=== PATIENT | female | born 1975 | race Caucasian/White ===

== ENCOUNTER 2023-07-15 08:16 | Inpatient (IN) | payer OTHER ==
[~2023-07-15] VITALS: Ht 165.1 cm; Wt 69.9 kg
[~2023-07-15 08:16] MED LIST: KEFLEX500 MG PO; Mylicon 125MG PO; OXYC1TAB9 PO; PRENATE ADVANCE PO; SENNA S TABLET1 EACH PO
[2023-07-20] MEDS ORDERED: NORETHINDRONE AC5 MG (09:28)
[2023-07-23] MEDS ORDERED: ACETAMINOPHEN-1 EAC2 PO (11:40)
[2023-07-23] MEDS ORDERED: SURFAK240 M1 PO (11:40)
[2023-07-23] MEDS ORDERED: FEXMID7.5 MG PO (11:40)
== END 2023-07-23 12:36 | disposition home or self-care (01) | DRG 743 ==
LOC: O/R 07-20 05:38 → SURH 07-20 07:00 → OB/GYN 07-20 13:44
PROVIDERS: Urology; ADMIT Obstetrics & Gynecology; ATTEND Obstetrics & Gynecology
PROC: 0T788DZ Dilation of Bilateral Ureters with Intraluminal Device, Via Natural or Artificial Opening Endoscopic (ICD-10-PCS; 2023-07-20)
PROC: 0UT90ZZ Resection of Uterus, Open Approach (ICD-10-PCS; principal; 2023-07-20 07:00)
PROC: 0UT70ZZ Resection of Bilateral Fallopian Tubes, Open Approach (ICD-10-PCS; 2023-07-20 07:00)
DX: D25.1 Intramural leiomyoma of uterus (principal); D25.2 Subserosal leiomyoma of uterus; D25.0 Submucous leiomyoma of uterus; Z20.822 Contact with and (suspected) exposure to COVID-19